=== PATIENT | female | born 1950 | race Two or more races ===

== ENCOUNTER → 2020-12-11 | Outpatient (CLI) | payer OTHER | END | disposition home or self-care (01) | LOC: TOM 09:45 | DX: U07.1 COVID-19 (principal); R06.02 Shortness of breath; E83.89 Other disorders of mineral metabolism ==

== ENCOUNTER 2023-04-17 07:17 | Emergency (ER) | payer OTHER ==
[~2023-04-17] VITALS: Ht 152.4 cm; Wt 49.0 kg
[2023-04-17] MEDS ORDERED: DILTIAZEM 24HR180 MG PO (07:46)
[2023-04-17] MEDS ORDERED: TOPROL XL25 M1 PO (07:46)
[2023-04-17] MEDS ORDERED: MIRTAZAPINE15 MG PO (07:47)
[2023-04-17] MEDS ORDERED: SYNTHROID88 MCG PO (07:47)
[2023-04-17] MEDS ORDERED: PROSCAR5 MG PO (07:47)
== END 2023-04-17 11:53 | disposition home or self-care (01) ==
LOC: ER 07:17
DX: K52.89 Other specified noninfective gastroenteritis and colitis (principal); C22.9 Malignant neoplasm of liver, not specified as primary or secondary; T78.1XXA Other adverse food reactions, not elsewhere classified, initial encounter; X58.XXXA Exposure to other specified factors, initial encounter; Z91.041 Radiographic dye allergy status

== ENCOUNTER 2023-04-28 07:32 | Outpatient (CLI) | payer OTHER ==
[~2023-04-28 07:32] MED LIST: DILTIAZEM 24HR180 MG PO; MIRTAZAPINE15 MG PO; PROSCAR5 MG PO; SYNTHROID88 MCG PO; TOPROL XL25 M1 PO
== END 2023-04-28 07:34 | disposition home or self-care (01) ==
LOC: LAB 07:32
PROVIDERS: ATTEND Radiology Diagnostic Radiology
DX: C78.7 Secondary malignant neoplasm of liver and intrahepatic bile duct (principal)

== ENCOUNTER 2023-04-28 07:58 | Outpatient (CLI) | payer OTHER | END 2023-04-28 08:04 | disposition home or self-care (01) | LOC: MRI 07:58 | PROVIDERS: ATTEND Internal Medicine | DX: C78.7 Secondary malignant neoplasm of liver and intrahepatic bile duct (principal); C73 Malignant neoplasm of thyroid gland | CPT/HCPCS: 74183; Q9965; 74182 ==

== ENCOUNTER 2023-06-16 13:54 | Emergency (ER) | payer OTHER ==
[~2023-06-16] VITALS: Ht 152.4 cm; Wt 47.6 kg
== END 2023-06-16 19:55 | disposition home or self-care (01) ==
LOC: ER 13:54
DX: K52.9 Noninfective gastroenteritis and colitis, unspecified (principal); E86.0 Dehydration; Z91.041 Radiographic dye allergy status; Z85.850 Personal history of malignant neoplasm of thyroid; E03.9 Hypothyroidism, unspecified; Z20.822 Contact with and (suspected) exposure to COVID-19
CPT/HCPCS: 36415; 96365; 99283; J3490

== ENCOUNTER 2024-08-29 10:38 | Outpatient (CLI) | payer OTHER | END 2024-08-29 10:47 | disposition home or self-care (01) | LOC: RAD 10:38 | PROVIDERS: ATTEND Internal Medicine | DX: S92.201A Fracture of unspecified tarsal bone(s) of right foot, initial encounter for closed fracture (principal) ==